=== PATIENT | male | born 1955 | race Caucasian/White ===

== ENCOUNTER → 2017-04-04 | Outpatient (CLI) | payer MEDICAID ==
--- NOTE | 2017-04-04 10:03 | RADIOLOGY REPORT PS360 ---
US RUQ-(ABD LTD)1ORGAN/QUAD/FU HISTORY: EPIGASTRIC PAIN- burning aching right upper quadrant and epigastric pain. Nausea Patient Age: 62 years: Male Ordering Physician: Temo Medrano MD TECHNIQUE: Ultrasound right upper quadrant COMPARISON :CT abdomen September 2014 FINDINGS Pancreas. Unremarkable. Head and body with very visualization tail not well seen but grossly unremarkable. Liver. Mild diffuse fatty changes no focal lesions. No biliary ductal dilatation. Gallbladder. No gallstones evident. No definitive sludge Gallbladder wall upper normal thickness. Common duct appears normal. 4 mm diameter at hilum of liver Right kidney. Appears normal 11.2 cm length. No hydronephrosis no mass. IMPRESSION: Gallbladder. No gallstones evident gallbladder wall upper normal thickness. Liver. Minimal diffuse fatty changes. No focal findings.
== END ==
LOC: RAD 08:16
DX: R10.13 Epigastric pain (principal)